=== PATIENT | female | born 1980 | race Caucasian/White ===

== ENCOUNTER 2023-09-02 06:54 | Day surgery (SDC) | payer OTHER, SELFPAY ==
[2023-08-26 14:45] VITALS: BMI 29.1
[2023-09-02] VITALS (9 sets, daily range): BP systolic 137–161; BP diastolic 83–112; PULSE 71–84; RESP 12–20; TEMP 36.2–36.4; O2SAT 92–100; BMI 30.1
--- NOTE | 2023-09-02 07:50 | WPDANESEPPF ---
Anes - Initial Pre Proc Eval Procedure: Operation Date: 09/02/23 09:30 Proposed Procedures p Bilateral Breast Implant Exchange with Capsulectomy - Bipin Gee MD Date/Time: 09/02/23 07:50 Surgeon: Bipin Gee MD Pre Op Diagnosis: Bilateral Breast Implant Rupture Patient Data Age: 43 Gender: F Height: 1.55 m Weight: 70 kg Allergies Allergy/AdvReac Type Severity Reaction Status Date / Time No Known Allergies Allergy Verified 09/02/23 08:52 Home Medications Medication Instructions Recorded Confirmed Type amlodipine 5 mg tablet 5 mg PO DAILY 08/26/23 09/02/23 History Patient hx anesthesia problems: post op nausea/vomiting Family hx anesthesia problems: none Results Review: All pre-operative results and documents have been reviewed as part of the pre-operative evaluation. [facility] Past Medical History Medical History (Updated 09/02/23 @ 07:50 by Evelio Mehta DO) Hypertension Social History Social History Smoking status: Current every day smoker Tobacco type: cigarettes Additional smoking assessment comments: pt states 2-3 cigs a day Alcohol intake: never Substance use: never Substance use type: does not use Living arrangements: with family Spiritual care concerns: No Anes - Eval Final PreProcedure Day of Procedure 09/02/23 07:50 Patient weight: overweight Heart: regular rate and rhythm Lungs: clear to auscultation Airway: Mallampati scale class II Neurological: alert and oriented Last oral intake: >/= 8 hours ASA classification: III Emergent: no Anesthetic plan: proceed Anesthesia type and monitoring: general LMA and standard monitoring Results Review: All pre-operative results and documents have been reviewed as part of the pre-operative evaluation. Informed Consent: The patient's anesthetic plan and its attendant risks and benefits were discussed with the patient/family/POA. Questions were solicited and answers provided to the satisfaction of the patient/family/POA.
[2023-09-02] MEDS: LACTATED RINGERS 1,000 ML 30 ML IV CONT ×2 (09:09→12:06)
[2023-09-02] MEDS: SCOPOLAMINE 1 MG PATCH 1 PATCH TRANSDERM (09:10)
--- NOTE | 2023-09-02 09:50 | WPDHPUPDATE1 ---
History and Physical Update Update Date/Time: 09/02/23 09:50 History and Physical has been reviewed, including an updated exam of the patient. There are NO changes in the patient's condition. Risks, benefits, and alternatives have been discussed and questions answered. Patient agrees to proceed with procedure.
--- NOTE | 2023-09-02 09:51 | W.PM.PROC2 ---
Procedure Note - Detailed Date of Procedure 09/02/23 Pre-op Diagnosis Bilateral Breast Implant Rupture Post-op Diagnosis Same Procedure Performed Bilateral ruptured breast implant exchange Surgeon Bipin Gee MD Anesthesia General Indications Bilateral ruptured implants Findings Bilateral capsules sent to pathology. Left breast <20cc red colored fluid - not able to send. Right breast > 100cc red colored fluid - obtained and sent to pathology. Bilateral implants were ruptured. New implants: Casper [employer] Cid SoftTouch Right - REF# [id number] SN [id number] Left - REF# [id number] SN [id number] Description of Procedure Preoperatively the risks, benefits, alternatives were discussed in extensive detail. I wanted to be very realistic about the risks involved as well as expectations. I was clear about how we could actually make her worse. Answered all questions to satisfaction. Voiced a clear understanding. Consent obtained. She was taken the operating room placed supine on the operating room table. Anesthesia provided by anesthesiology and prepped and draped in a standard sterile fashion. Surgical time-out was taken. 1% lidocaine and 0.25% Marcaine with epinephrine was used to provide a field block. Tegaderm nipple braga were placed. Fifteen blade used to excise the previous IMF scars. Dissection was continued down until the capsules were identified and excised a significant portion of the capsule which was sent to pathology. A seroma was encountered and fluid collected / sent to pathology as well as capsules. I then copiously irrigated with 3 L of saline solution on TUR tubing. Verified strict hemostasis. I then irrigated with Betadine containing solution. Using a no-touch technique and a Hernandez funnel the implant was introduced into the pocket. This was closed with 2-0 PDS followed by 3-0 Monocryl and a running subcuticular 4-0 Monocryl followed by tissue glue. Dressings were placed. She was woken taken to the PACU without difficulty. All instrument sponge counts were correct at the end of the case. Estimated Blood Loss 75 Drains No Packing No Pathology Yes (Bilateral breast capsules / right breast seroma fluid) Complications No immediate complications Condition Stable Disposition PACU
[2023-09-02] MEDS: ceFAZolin SODIUM 2 GM/20 ML SW SYRINGE IV PUSH (10:25)
[2023-09-02] MEDS: LIDO 1%/EPINEPHRINE 1:100,000 50 ML VIAL 30 ML INFILTRATE (10:33)
[2023-09-02] MEDS: BUPivacaine HCL 0.25% PF 30 ML VIAL INFILTRATE (10:33)
[2023-09-02] MEDS: NACL 0.9% IRRIG POUR BOTTLE 900 ML, GENTAMICIN SULFATE INJ 160 MG, ceFAZolin 2 GM, POVI... IRRIGATION (11:30)
[2023-09-02] MEDS: fentaNYL CITRATE INJ (*CRX) 100 MCG/2 ML VIAL 25 MCG IV PUSH ×2 (13:03→13:08)
--- NOTE | 2023-09-02 13:28 | WPDANESPN ---
Anes - Prog Note Post-Op Date/Time: 09/02/23 13:28 Cardiovascular status: normal Respiratory status: normal Airway patency: baseline Mental status: baseline Post-Op hydration status: normal Vital Signs: Last Vital Signs Temp 36.2 C L 09/02/23 12:06 Pulse 71 09/02/23 13:20 Resp 12 09/02/23 13:20 BP 137/83 09/02/23 13:20 Pulse Ox 93 09/02/23 13:20 O2 Del Method Room Air 09/02/23 13:20 O2 Flow Rate 6 09/02/23 12:35 Pain Score (VAS): 2 I/O: Intake & Output 09/01/23 09/02/23 09/02/23 23:59 07:59 15:59 Intake Total 300 Balance 300 Post-procedural complaints: none Patient Feedback: Patient satisfied with anesthetic care. Other Findings: Patient vital signs back to baseline. Patient denies nausea and vomiting. Patient's pain under control. Patient OK for discharge.
[2023-09-02] MEDS: oxyCODONE HCL (*CRX) 5 MG TAB IR PO (14:01)
== END 2023-09-02 14:17 | disposition home or self-care (01) ==
PROVIDERS: Visit Provider Surgery Plastic and Reconstructive Surgery
PROC: (CPT 19342; principal; 2023-09-02 09:30)
DX: T85.49XA Other mechanical complication of breast prosthesis and implant, initial encounter (principal)
CPT/HCPCS: 19342

== ENCOUNTER 2023-09-02 14:24 | Outpatient (NON) | payer OTHER, SELFPAY | END 2023-09-02 14:25 | disposition home or self-care (01) | PROVIDERS: Visit Provider Surgery Plastic and Reconstructive Surgery | DX: N64.89 Other specified disorders of breast (principal); T85.43XA Leakage of breast prosthesis and implant, initial encounter | CPT/HCPCS: 88184; 88185; 88304 ==